=== PATIENT | female | born 1955 | race Caucasian/White ===

== ENCOUNTER 2018-12-31 07:33 | Emergency (ER) | payer OTHER ==
[~2018-12-31] VITALS: Ht 149.9 cm; Wt 56.7 kg
[~2018-12-31 07:33] MED LIST: ANTIVERT12.5 MG PO; OMEPRAZOLE20 M1; PANADOL EXTRA500 MG
[2018-12-31] MEDS ORDERED: [UNRECOGNIZED DRUG - OTHER] (07:55)
[2018-12-31] MEDS ORDERED: BETAMETHASONE D15 GM (07:55)
[2018-12-31] MEDS ORDERED: [UNRECOGNIZED DRUG - CODE] (07:56)
[2018-12-31] MEDS ORDERED: [UNRECOGNIZED DRUG - OTHER] (07:57)
[2018-12-31] MEDS ORDERED: BANOPHEN50 MG (07:58)
== END 2018-12-31 12:53 | disposition home or self-care (01) ==
LOC: ER 07:33
DX: R21 Rash and other nonspecific skin eruption (principal); Z20.820 Contact with and (suspected) exposure to varicella

== ENCOUNTER 2020-11-05 12:15 | Emergency (ER) | payer OTHER ==
[~2020-11-05] VITALS: Ht 149.9 cm; Wt 52.6 kg
[~2020-11-05 12:15] MED LIST changes: +BANOPHEN50 MG; +BETAMETHASONE D15 GM; +[UNRECOGNIZED DRUG - CODE]; +[UNRECOGNIZED DRUG - OTHER]; +[UNRECOGNIZED DRUG - OTHER]
[2020-11-05] MEDS ORDERED: LIPITOR20 MG PO (12:32)
== END 2020-11-05 14:49 | disposition home or self-care (01) ==
LOC: ER 12:15
DX: R42 Dizziness and giddiness (principal)

== ENCOUNTER 2021-03-18 11:08 | Emergency (ER) | payer OTHER ==
[~2021-03-18] VITALS: Ht 149.9 cm; Wt 54.4 kg
[~2021-03-18 11:08] MED LIST changes: +LIPITOR20 MG PO
== END 2021-03-18 16:35 | disposition home or self-care (01) ==
LOC: ER 11:08
DX: K21.9 Gastro-esophageal reflux disease without esophagitis (principal); Z03.818 Encounter for observation for suspected exposure to other biological agents ruled out